=== PATIENT | male | born 1980 ===

== ENCOUNTER → 2022-02-19 | Outpatient (CLI) | payer OTHER | END | disposition home or self-care (01) | LOC: LAB SHORT 14:24 → LAB 14:24 | DX: R10.9 Unspecified abdominal pain (principal) | CPT/HCPCS: 87338 ==

== ENCOUNTER → 2022-02-19 | Outpatient (CLI) | payer OTHER | END | disposition home or self-care (01) | LOC: LAB SHORT 15:14 → PLD 15:14 | DX: D22.5 Melanocytic nevi of trunk (principal); L81.9 Disorder of pigmentation, unspecified | CPT/HCPCS: 88305 ==